=== PATIENT | male | born 1935 | race Caucasian/White ===

== ENCOUNTER → 2016-08-09 | Outpatient (CLI) | payer OTHER ==
[~2016-08-09] MED LIST: CIPR500T86 PO; CITA40TA5 PO; DONE5TAB7 PO; HYDR-3101 PO; LEVO50TA6 PO; MULT1TAB52 PO; OMEG1CAP23 PO; RAMI2.5C28 PO; SIMV10TA3 PO; URISPAS PO; [UNRECOGNIZED DRUG - CODE] PO
[2016-08-09 16:30] LABS: BASOPHIL % 0.3 % (0.0-0.2); EOSINOPHIL # 0.5 10^3/uL (0.0-0.2); EOSINOPHIL % 5.9 % (0.0-5.0); HEMATOCRIT 53.1 % (37.0-53.0); HEMOGLOBIN 17.7 g/dL (13.9-16.3); LYMPHOCYTES # 2.2 10^3/uL (1.0-4.8); MEAN CELL HGB 30.8 pg (26-34); MEAN CELL HGB CONCENTRATION 33.3 g/dL (33-37); MEAN CORP VOLUME 92.5 fL (78-100); MONOCYTES # 0.6 10^3/uL (0.3-0.8); MONOCYTES % 7.8 % (5.0-12.0); NEUTROPHIL # 4.3 10^3/uL (1.8-7.7); NEUTROPHILS % 56.9 % (41.0-85.0); RED CELL DISTRIBUTION WIDTH 13.7 % (11.5-14.5); WHITE BLOOD CELL 7.6 10^3/uL (4.5-11.0)
[2016-08-09 16:32] LABS: APPEARANCE,URINE CLEAR (CLEAR); BILIRUBIN,URINE NEGATIVE (NEGATIVE); UA COLOR STRAW (YELLOW); UROBILINOGEN,URINE NORMAL (NEGATIVE)
[2016-08-10 08:33] LABS: CALCIUM 8.8 mg/dL (8.4-10.5); CARBON DIOXIDE 31.2 mmol/L (20.0-32)
== END | disposition home or self-care (01) ==
LOC: LAB 15:51
PROVIDERS: ATTEND Internal Medicine
DX: Z13.220 Encounter for screening for lipoid disorders (principal); Z13.29 Encounter for screening for other suspected endocrine disorder; Z00.01 Encounter for general adult medical examination with abnormal findings; I10 Essential (primary) hypertension; E78.5 Hyperlipidemia, unspecified; R00.1 Bradycardia, unspecified; Z79.899 Other long term (current) drug therapy
CPT/HCPCS: 36415; 80053; 80061; 81002; 82043; 83036; 84425; 85025; 86803; 93005

== ENCOUNTER → 2016-08-24 | Outpatient (CLI) | payer OTHER | END | disposition home or self-care (01) | LOC: LAB 15:39 | PROVIDERS: ATTEND Internal Medicine | DX: Z13.29 Encounter for screening for other suspected endocrine disorder (principal); E03.9 Hypothyroidism, unspecified | CPT/HCPCS: 36415; 84439; 84443 ==

== ENCOUNTER → 2016-09-12 | Outpatient (CLI) | payer OTHER ==
[~2016-09-12] VITALS: Ht 170.2 cm; Wt 81.2 kg
[~2016-09-12] MED LIST changes: +LEXISCAN IV ONE
--- NOTE | 2016-09-12 15:42 | DIREP ---
PROCEDURE:CAROTID ULTRASOUND COMPARISON:None. INDICATIONS:R00.1 BRADARDIA, R53.853 FATIGUE, I25.10 CAD TECHNIQUE:Sonographic evaluation of carotid and vertebral arteries was performed together with grayscale, color-flow, and spectral analysis. FINDINGS: RIGHT CCA: PROX: 61.8 cm/s MID:50.8 cm/s DIST: 42.3 cm/s RIGHT ICA: PROX:34.1 cm/s MID:48.8 cm/s DIST:38.3 cm/s RIGHT ECA (prox):52.5 cm/s RIGHT ICA/CC:1.0 RIGHT VERTEBRAL:24.5 cm/s; Antegrade. IMAGES: There is intimal thickening. LEFT CCA: PROX:63.6 cm/s MID:57.3 cm/s DIST: 46.8 cm/s LEFT ICA: PROX:52.3 cm/s MID:62.4 cm/s DIST:46.0 cm/s LEFT ECA:60.6 cm/s LEFT ICA/CCA:1.3 LEFT VERTEBRAL:38.3 cm/s; Antegrade IMAGES:There is intimal thickening. CONCLUSION:No significant stenosis in the carotid vessels. Diameter Stenosis (%)ICA Peak Systolic Velocity (cm/s)ICA/CCA RatioNormal<125<2.0<50<125<[id number] to near occlusion>230>4J Ultrasound Med 2005; 24:5622-6310 ac Dictated by: ZURDO Physician on 09/12/2016 at 03:07 PM
--- NOTE | 2016-09-14 15:15 | STRESS ---
PROCEDURE: Stress test with nuclear imaging study. INDICATION: This is a 81-year-old gentleman with bradycardia, fatigue, coronary artery disease, hypertension and dyslipidemia. Symptoms were suggestive of coronary artery disease; therefore, imaging study was recommended to rule out any obstructive coronary artery lesion. The patient presented to the stress lab in the fasting condition. He signed proper consent. His baseline blood pressure 156/89, heart rate 52, sinus bradycardia without ischemic changes and right bundle branch block noted. The patient was injected with 0.4 mg of regadenoson, followed by at 1 minute post infusion, blood pressure was 147/79, heart rate of 84, no acute changes of ischemia noted, no arrhythmia and the patient reported no significant symptoms. Myocardial perfusion study was performed using technetium sestamibi on the same day with stress test protocol showing the following: Study quality was good. Motion artifact corrected and the prone position was available. LV cavity showed a degree of ____ ischemic dilatation. The calculated study was 1.14. This is an abnormal finding. Myocardial perfusion SPECT imaging showed a medium size apical perfusion defect that was present even at prone position correction indicating to ischemia . Gait function study showed apical hypokinesia, EF was 59%, volume 53 mL. IMPRESSION: 1. Nondiagnostic ses portion of Lexiscan. 2. No acute ischemia. 3. No arrhythmia. 4. No hemodynamic response. 5. Myocardial perfusion imaging study showed abnormality with the following: A. Transischemic dilatation. B. Medium size apical perfusion defect with some inferior wall extension. C. Gait function study showed apical hypokinesia and akinesia with preserved EF of 59%. D. This study qualifies for moderate risk for obstructive coronary artery disease. Clinical correlation is recommended. Lester Valencia MD,FACC JAEL/SHERRIE TD: 09/14/2016 10:37 [facility]ITALBraxton
== END | disposition home or self-care (01) ==
LOC: RAD 08:53
PROVIDERS: ATTEND Internal Medicine
DX: I25.10 Atherosclerotic heart disease of native coronary artery without angina pectoris (principal); I73.9 Peripheral vascular disease, unspecified; R00.1 Bradycardia, unspecified; R53.83 Other fatigue
CPT/HCPCS: 78452; 93017; 93307; 93880; A9500; J2785

== ENCOUNTER 2016-10-26 00:46 | Day surgery (SDC) | payer OTHER ==
[2016-10-23 17:09] LABS: BASOPHIL % 0.2 % (0.0-0.2); EOSINOPHIL # 0.3 10^3/uL (0.0-0.2); EOSINOPHIL % 4.2 % (0.0-5.0); HEMOGLOBIN 17.5 g/dL (13.9-16.3); LYMPHOCYTES % 24.3 % (24.0-44.0); MEAN CELL HGB CONCENTRATION 33.5 g/dL (33-37); MEAN CORP VOLUME 89.5 fL (78-100); MEAN PLATELET VOLUME 10.4 fL (7.8-11.0); MONOCYTES # 0.8 10^3/uL (0.3-0.8); MONOCYTES % 9.2 % (5.0-12.0); NEUTROPHILS % 61.9 % (41.0-85.0); RED CELL DISTRIBUTION WIDTH 13.4 % (11.5-14.5); WHITE BLOOD CELL 8.1 10^3/uL (4.5-11.0)
[2016-10-23 17:20] LABS: CALCIUM 9.5 mg/dL (8.4-10.5); CARBON DIOXIDE 29.2 mmol/L (20.0-32)
--- NOTE | 2016-10-23 19:30 | DIREP ---
PROCEDURE:CHEST 2 VIEWS COMPARISON:None. INDICATIONS:PRE OP HEART CATH, ABN STACY SCAN FINDINGS: LUNGS/PLEURA:Mild hyperinflation. No significant pulmonary parenchymal abnormalities. No effusions. VASCULATURE:Normal. Unremarkable pulmonary vasculature. CARDIAC:Normal. No cardiac silhouette abnormality or cardiomegaly. MEDIASTINUM:Mediastinal contours are within normal limits with calcifications of the aorta. 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 Degenerative changes of the spine. No acute abnormality. OTHER:Negative. CONCLUSION: 1. Mild hyperinflation may reflect senescent changes or underlying chronic lung disease such as COPD. No superimposed acute cardiopulmonary abnormality. Dictated by: Davey Grewal M.D. On 10/23/2016 at 07:27 PM
[2016-10-26] VITALS (11 sets, daily range): BP systolic 116–154; BP diastolic 66–82
[~2016-10-26] VITALS: Ht 170.2 cm; Wt 75.7 kg
[~2016-10-26 00:46] MED LIST changes: +AMLO5TAB2 PO; +ATOR40TA PO; +FLUT9.9S NS; +FOLI1TAB21 PO; +LEVO75TA6 PO; -LEXISCAN IV ONE; +METF500T4 PO; +RAMI10CA PO; +THIA50TA PO
[2016-10-26] MEDS ORDERED: BENADRYL PO ONE ×2 (06:00→07:06)
[2016-10-26] MEDS ORDERED: CALAN ONE (06:34)
[2016-10-26] MEDS ORDERED: HEPARIN ONE (06:34)
[2016-10-26] MEDS ORDERED: NITROGLYCERIN 25MG/D5W 250ML 250 ML IV ONE (06:35)
[2016-10-26] MEDS ORDERED: SUBLIMAZE ONE (06:35)
[2016-10-26] MEDS ORDERED: VERSED ONE (06:35)
[2016-10-26] MEDS ORDERED: XYLOCAINE ONE (06:35)
[2016-10-26] MEDS ORDERED: NS 1000ML 1,000 ML ONE (06:37)
[2016-10-26] MEDS ORDERED: ATROPINE SULFATE ONE (08:09)
--- NOTE | 2016-10-26 09:26 | CCRH ---
DATE OF SERVICE: 10/26/2016 PROCEDURES PERFORMED: 1. Left heart catheterization via right radial artery access. 2. Selective coronary angiography, left and right. 3. Left ventricular end-diastolic pressure measurement. 4. Left ventriculography. COMPLICATIONS: None. BLOOD LOSS: Minimal, less than 10 mL. INDICATIONS AND PREOPERATIVE DIAGNOSES: 1. Abnormal stress test dated 09/12/2016 with high risk findings. 2. Multiple risk factors for coronary artery disease including diabetes mellitus, hypertension, and hyperlipidemia and age. 3. Symptoms of bradycardia, fatigue, shortness of breath and occasional angina. HISTORY OF PRESENT ILLNESS: The patient is a 81-year-old gentleman with the above-mentioned risk factors was examined with stress test on 09/12/2016 that showed findings of transient ischemic dilatation and apical hypokinesia as well as a medium size perfusion defect in the inferior wall. Therefore, the patient was elected for coronary angiography and possible intervention. The patient presented to the [facility] in a fasting condition on 10/26/2016. He signed proper consent, risks and benefits were explained. All the questions were answered. Lab results were reviewed and allergies verified. DESCRIPTION OF PROCEDURE: Right wrist area was prepped and draped and sterilized, 1% lidocaine was used for local analgesia followed by advancing a 6-Trinidadian sheath in the right radial artery. 4000 units of heparin were given at access time for radial protection. A 6-Trinidadian [place] catheter was utilized to engage the right coronary arteries, followed by exchanging for a 6-Trinidadian JL4 guiding catheter to engage the left main coronary artery. A pigtail catheter was then advanced over the guidewire into the LV cavity across the aortic valve for LVEDP measurement and power injection LV gram in the EATON projection. Careful examination of coronary angiography showed a moderate disease in the mid circumflex artery inconsistent with stress test findings. Therefore, the case was concluded with removal of wires and catheters and application of TR band. The patient tolerated the procedure well, reports no symptoms. No arrhythmia was noted. He left the [facility] in stable condition and received education on the results of coronary angiography. HEMODYNAMICS: 1. Opening pressure of 126/59, mean of 77 mmHg. 2. LVEDP was around 8-10 mmHg. 3. LV gram showed an EF of around 60% without significant wall motion abnormality. 4. No gradient across the aortic valve was noted on pullback of the pigtail catheter. 5. Ascending aorta was normal in size without apparent pathology. The vessel was tortuous and mildly calcified. ANGIOGRAPHIC FINDINGS: 1. Right coronary artery is large, super dominant vessel, free of disease, bifurcates distally into a large super dominant RPDA and PLV branches. No obstructive lesion noted in the RCA territory. Multiple small acute marginal branches were seen. The conus branch and SA anastasia branch were normal in size, free of disease with close proximity to the ostium of the RCA. 2. Left main is a normal size vessel, free of disease and normal diameter. 3. LAD was showing minimal luminal irregularity around 20% in a medium size vessel. The first and second diagonal branches are large, tortuous vessels without significant disease. The LAD, apical segment is very minimal the apex is supplied mainly by the RCA. 4. The circumflex artery is a medium sized nondominant vessel. There is a 50% concentric lesion in the mid segment. The flow is TIMI3 in the circumflex artery territory. No obstructive lesions noted and multiple small obtuse marginal branches were seen without obstructive disease. IMPRESSION: 1. Normal left main. 2. Large super dominant RCA free of disease with the apical extension. 3. Minimal luminal irregularity in the medium size LAD 4. Moderate nonobstructive lesion in the medium sized nondominant circumflex artery. 5. Normal EF around 60% with normal LVEDP 6. The procedure was well tolerated. RECOMMENDATIONS: 1. TR band protocol. 2. Optimize medical management for secondary prevention of coronary artery disease. 3. Control of risk factors. 4. Therapeutic lifestyle modifications. 5. Same day discharge once the patient meets discharge criteria. Lester Valencia MD DR: SULY/ирина JOB# [id number]
== END 2016-10-26 10:50 | disposition home or self-care (01) | DRG 303 ==
LOC: SURG 00:46
PROVIDERS: ATTEND Internal Medicine
DX: I25.119 Atherosclerotic heart disease of native coronary artery with unspecified angina pectoris (principal); E78.5 Hyperlipidemia, unspecified; I42.9 Cardiomyopathy, unspecified; I10 Essential (primary) hypertension; E11.9 Type 2 diabetes mellitus without complications; I73.9 Peripheral vascular disease, unspecified; E66.3 Overweight; F32.9 Major depressive disorder, single episode, unspecified; Z88.0 Allergy status to penicillin; Z79.01 Long term (current) use of anticoagulants; Z79.899 Other long term (current) drug therapy; F17.210 Nicotine dependence, cigarettes, uncomplicated; Z95.1 Presence of aortocoronary bypass graft; Z68.26 Body mass index [BMI] 26.0-26.9, adult; Z90.49 Acquired absence of other specified parts of digestive tract; Z98.890 Other specified postprocedural states
CPT/HCPCS: 36415; 71020; 80048; 82948 ×2; 85025; 85610; 93458; 99152; C1769; C1887 ×2; C1894 ×2; J0461; J1644 ×2; J2250; J3010; J3490 ×2; J7030; Q0163; Q9967 ×2

== ENCOUNTER 2019-08-19 10:27 | Emergency (ER) | payer MEDICARE ==
[~2019-08-19] VITALS: Ht 170.2 cm; Wt 70.3 kg
[~2019-08-19 10:27] MED LIST changes: +AMLO5TAB10 PO; -AMLO5TAB2 PO; +CITA20TA9 PO; +ESCI10TA PO; +METF500T17 PO; -METF500T4 PO; +MIRT15TA3 PO; +MULT-419 PO; -MULT1TAB52 PO; +PHEN-566 PO; -RAMI10CA PO; +RAMI10CA36 PO; +RISP0.2518 PO; +SIMV10TA18 PO; -SIMV10TA3 PO; -THIA50TA PO; +THIA50TA4 PO; -[UNRECOGNIZED DRUG - CODE] PO
[2019-08-19 10:43] VITALS: BP 168/91
[2019-08-19 10:46] VITALS: BP 168/91
[2019-08-19 10:47] VITALS: BP 168/91
--- NOTE | 2019-08-19 10:48 | NUR ---
ARRIVAL PATIENT ARRIVED TO ED4 AMBULATORY, C/O OF LEFT SHOULDER PAIN FOR THE PAST COUPLE OF DAYS, PATIENT STATES THE PAIN IS WORSE WITH RANGE OF MOTION, DENIES TAKING ANY PAIN MEDICATIONS, CAME TODAY TO THE ED FOR EVAL.
--- NOTE | 2019-08-19 11:00 | PCM.EKG ---
[facility] Test Date: 2019-08-19 Test Time: 10:48:05 Pat Name: RAVINDER RIDDLE [facility]: [id number]: Gender: M Field Liability Generalist: MAJO : 1935 Requested By: ELSA OJEDA Order Number: [id number] Reading MD: Elsa OJEDA Measurements Intervals [place] Rate: 57 P: 70 PA: 190 QRS: 6 QRSD: 132 T: 43 QT: 464 QTc: 452 Interpretive Statements Sinus rhythm Right bundle branch block Compared to ECG 10/04/2018 16:29:52 Atrial premature complex(es) no longer present Electronically Signed On 08-22-2019 7:08:51 CDT by Elsa OJEDA Please click the below link to view image of tracing.
--- NOTE | 2019-08-19 11:00 | ER.PDOC ---
General Chief Complaint: Extremities Stated Complaint: PAIN IN BACK LEFT SHOULDER Time seen by MD: 10:59 Source: patient Exam Limitations: no limitations History of Present Illness Initial Comments Left shoulder, upper and mid back pain for past few days. No fall or injury. Where: home Severity: moderate Allergies: Coded Allergies: No Known Allergies (Unverified , 10/25/16) Home Meds Active Scripts Mirtazapine (REMERON) 15 Mg Tab.rapdis, 22.5 MG PO HS for 30 Days Prov:ALICIA MATTHEWS AIR [employer] 10/14/18 Citalopram Hydrobromide (CELEXA) 20 Mg Tablet, 30 MG PO DAILY for 30 Days, TABLET Prov:ALICIA MATTHEWS AIR MARSHAL 10/14/18 Risperidone (RISPERDAL) 0.25 Mg Tablet, 0.5 MG PO BID for 30 Days, TABLET Prov:ALICIA MATTHEWS AIR MARSHAL 10/14/18 Reported Medications Atorvastatin 40MG (LIPITOR 40MG) 40 Mg Tablet, 1 TAB PO HS, #90 TAB 1 Refill 10/01/18 Metformin Hcl (METFORMIN HCL) 500 Mg Tablet, 1 TAB PO DAILY24, #60 TAB 3 Refills 10/01/18 Levothyroxine Sodium (LEVOTHYROXINE SODIUM) 75 Mcg Tablet, 0.075 MCG PO DAILY24, TABLET 10/01/18 Ramipril 10MG (ALTACE 10MG) 10 Mg Capsule, 1 CAP PO DAILY, #30 CAP 5 Refills 10/25/16 Amlodipine Besylate (AMLODIPINE BESYLATE) 5 Mg Tablet, 1 TAB PO DAILY, #30 TAB 5 Refills 10/25/16 Past Medical History Medical History: no pertinent history Surgical History: appendectomy, knee, other Social History Alcohol Use: none Drug Use: none Review of Systems Constitutional: no symptoms reported Respiratory: no symptoms reported Cardiovascular: no symptoms reported Gastrointestinal: no symptoms reported Genitourinary: no symptoms reported Musculoskeletal: see HPI All Other Systems: Reviewed and Negative Physical Exam General Appearance: Alert, No Apparent Distress Shoulder: tenderness (left shoulder) Upper Extremities: uninjuried below shoulder Neuro: sensation nml, motor nml Vascular: no vascular compromise Head/ENT: nml inspection, pharynx nml Neck/Back: non-tender, nml inspection, painless ROM Respiratory: chest non-tender, breath sounds nml CVS: reg rate & rhythm, heart sounds nml Abdomen: non-tender, no organomegaly Comments Tenderness cervical and thoracic spines. Results/Orders Results/Orders Orders - ELSA OJEDA MD Cbc With Auto Diff (08/19/19 10:53) Comprehensive Metabolic Panel (08/19/19 10:53) Creatine Kinase (08/19/19 10:53) Creatine Kinase Mb (08/19/19 10:53) Troponin I (08/19/19 10:53) PT (08/19/19 10:53) Partial Thromboplastin Time. (08/19/19 10:53) Ekg-Routine (08/19/19 10:53) Xr Shoulder Lt 2v (08/19/19 10:53) Xr Cspine 2-3v (08/19/19 10:53) Xr Tspine 3v (08/19/19 10:53) Xr Chest 1v (08/19/19 10:53) Vital Signs Date Time Temp Pulse Resp B/P (MAP) Pulse Ox O2 Delivery O2 Flow Rate FiO2 08/19/19 10:47 98.0 60 18 168/91 (116) 92 Room Air 08/19/19 10:46 98.0 60 18 168/91 (116) 92 Room Air 08/19/19 10:43 98.0 60 18 92 08/19/19 10:43 98.0 60 18 Laboratory Tests Test 08/19/19 11:06 White Blood Count 5.3 10^3/uL (4.5-11.0) Red Blood Count 6.46 10^6/uL (4.50-5.90) H Hemoglobin 18.1 g/dL (13.9-16.3) H Hematocrit 56.9 % (37.0-53.0) H Mean Corpuscular Volume 88.1 fL (78-100) Mean Corpuscular Hemoglobin 28.0 pg (26-34) Mean Corpuscular Hemoglobin Concent 31.8 g/dL (33-36.5) L Red Cell Distribution Width 14.9 % (11.5-14.5) H Platelet Count 235 10^3/uL (150-400) Mean Platelet Volume 9.2 fL (7.8-11.0) Neutrophils (%) (Auto) 63.3 % (41.0-85.0) Lymphocytes (%) (Auto) 22.2 % (24.0-44.0) L Monocytes (%) (Auto) 10.7 % (5.0-12.0) Neutrophils # (Auto) 3.4 10^3/uL (1.8-7.7) Lymphocytes # (Auto) 1.18 10^3/uL1 (1.0-4.8) Monocytes # (Auto) 0.6 10^3/uL (0.3-0.8) Absolute Immature Granulocyte (auto 0 10^3 u/L (0-2) Absolute Eosinophils (auto) 0.2 10^3/uL (0.0-0.2) Immature Granulocytes % 0.00 % (0.00-0.50) Eosinophils % 3.2 % (0.0-5.0) Basophils % 0.6 % (0.0-0.2) H Basophils # 0.0 10^3/uL (0.0-0.1) Prothrombin Time 12.7 SEC (9.3-11.3) H Prothrombin Time INR (Non-Therap) 1.3 Activated Partial Thromboplast Time 25.0 SEC (24.67-30.72) Sodium Level 140 mmol/L (132-145) Potassium Level 3.3 mmol/L (3.6-5.2) L Chloride Level 102.0 mmol/L (96-109) Carbon Dioxide Level 30.8 mmol/L (20.0-32) Anion Gap 10.5 Blood Urea Nitrogen 6 mg/dL (7-18) L Creatinine 0.97 mg/dL (0.59-1.40) Estimated GFR () 89.7 (>/=60) Est GFR (CKD-EPI)(Non-Afr Cameroonian) 74.1 (>/=60) BUN/Creatinine Ratio 6.0 Glucose Level 111 mg/dL (70-110) H Calcium Level 8.5 mg/dL (8.4-10.5) Total Bilirubin 0.7 mg/dL (0.2-1.0) Aspartate Amino Transferase (AST) 21 U/L (0-35) Alanine Aminotransferase (ALT) 16 U/L (12-78) Alkaline Phosphatase 109 U/L (50-136) Total Creatine Kinase 67 U/L (39-308) Creatine Kinase MB 1.5 ng/mL (0.5-3.6) Troponin I < 0.02 ng/mL (0.00-0.05) Total Protein 7.0 g/dL (6.4-8.2) Albumin 3.3 g/dL (3.4-5.0) L Globulin 3.7 EKG/XRAY/CT/US XRAY: chest (No active disease) XRAY Comments: No acute bony abnormality of left shoulder, C and T spines Departure Time of Disposition: 11:49 Disposition: 01 HOME, SELF-CARE Impression: Primary Impression: Shoulder pain, left Additional Impression: Back pain Condition: Stable Referrals: MENDEZ GARCIA (PCP) PRIMARY CARE PROVIDER Additional Instructions: Tramadol Medrol dose pain F/U with your PCP in 3-5 days Return to ED if worsening pain or concerns. Duration or Time Spent with Pa: 45 min Problem Qualifiers Primary Impression: Shoulder pain, left Chronicity: acute Qualified Codes: M25.512 - Pain in left shoulder Additional Impression: Back pain Back pain location: back pain in unspecified location Chronicity: acute Back pain laterality: unspecified Qualified Codes: M54.9 - Dorsalgia, unspecified ELSA OJEDA MD Aug 19, 2019 11:00
[2019-08-19 11:13] LABS: BASOPHIL % 0.6 % (0.0-0.2); EOSINOPHIL # 0.2 10^3/uL (0.0-0.2); EOSINOPHIL % 3.2 % (0.0-5.0); LYMPHOCYTES # 1.18 10^3/uL1 (1.0-4.8); LYMPHOCYTES % 22.2 % (24.0-44.0); MONOCYTES # 0.6 10^3/uL (0.3-0.8); MONOCYTES % 10.7 % (5.0-12.0); NEUTROPHIL # 3.4 10^3/uL (1.8-7.7); NEUTROPHILS % 63.3 % (41.0-85.0); PLATELET COUNT 235 10^3/uL (150-400); RED CELL DISTRIBUTION WIDTH 14.9 % (11.5-14.5)
--- NOTE | 2019-08-19 11:13 | NUR ---
XRAY PATIENT TO RADIOLOGY WITH DELMI FROM RADIOLOGY.
--- NOTE | 2019-08-19 11:27 | NUR ---
XRAY PATIENT BACK FROM XRAY
--- NOTE | 2019-08-19 11:31 | DIREP ---
PROCEDURE:XR SPINE CERVICAL 2 OR 3 VIEWS COMPARISON:None. INDICATIONS:pain TECHNIQUE:AP, lateral, and dens views of the cervical spine are provided. FINDINGS: ALIGNMENT:Normal. VERTEBRAE:Normal height. Mild diffuse anterior osteophyte formation. Mild diffuse facet arthrosis. DISK SPACES:Normal. CERVICAL RIBS:None. OTHER:Normal. CONCLUSION:Degenerative changes without acute abnormality noted. Dictated by: Yuli Faith M.D. on 08/19/2019 at 11:29 AM
--- NOTE | 2019-08-19 11:31 | DIREP ---
PROCEDURE:XRAY SPINE THORACIC 3 VWS COMPARISON:None. INDICATIONS:pain TECHNIQUE:AP & lateral views of the thoracic spine are provided. FINDINGS: ALIGNMENT:Normal. VERTEBRAE:Normal height. Mild diffuse degenerative change. DISK SPACES:Normal. OTHER:Aortic atherosclerosis. CONCLUSION:No acute abnormality noted. Dictated by: Yuli Faith M.D. on 08/19/2019 at 11:30 AM
--- NOTE | 2019-08-19 11:35 | DIREP ---
PROCEDURE:CHEST 1 VIEW COMPARISON:[facility], CR, XRAY CHEST 2 VWS, 09/30/2018, 09:35 PM. INDICATIONS:upper back pain FINDINGS: LUNGS/PLEURA:Bibasilar atelectasis or scarring. No focal consolidation or pleural effusion. VASCULATURE:Normal. Unremarkable pulmonary vasculature. CARDIAC:Normal. No cardiac silhouette abnormality or cardiomegaly. MEDIASTINUM:Atherosclerotic aorta with no visible aneurysm. BONES:Chronic deformity of the midshaft right clavicle. OTHER:Negative. CONCLUSION: 1. Bibasilar atelectasis or scarring. No focal consolidation or pleural effusion. Dictated by: Jurgen Johnson MD on 08/19/2019 at 11:32 AM
[2019-08-19 11:38] LABS: ALANINE AMINOTRANSFERASE(ML) 16 U/L (12-78); ALKALINE PHOSPHATASE 109 U/L (50-136); ASPARTATE AMINO TRANSFERASE 21 U/L (0-35); CALCIUM 8.5 mg/dL (8.4-10.5); CARBON DIOXIDE 30.8 mmol/L (20.0-32); GLUCOSE 111 mg/dL (70-110)
--- NOTE | 2019-08-19 11:38 | DIREP ---
PROCEDURE:XRAY SHOULDER MIN 2 VWS-LT COMPARISON:None. INDICATIONS:pain FINDINGS: BONES:Chronic healed deformity of the left humeral neck. No acute deformities. JOINTS:Mild acromioclavicular and glenohumeral joint arthropathy. Well corticated os ossific densities above the glenohumeral joint that could signify intra-articular bodies. SOFT TISSUES:Normal. OTHER:Calcified aortic arch. CONCLUSION: 1. Mild acromioclavicular and glenohumeral joint arthropathy. 2. No acute deformities. Chronic deformity of the left humeral neck. 3. Calcific densities above the glenohumeral joint suggest the presence of intra-articular bodies. Dictated by: Jurgen Johnson MD on 08/19/2019 at 11:34 AM
[2019-08-19 11:48] VITALS: BP 163/87
== END 2019-08-19 11:55 | disposition home or self-care (01) ==
LOC: ER 10:27
DX: M25.512 Pain in left shoulder (principal); M54.9 Dorsalgia, unspecified; R79.1 Abnormal coagulation profile; Z79.899 Other long term (current) drug therapy; Z90.49 Acquired absence of other specified parts of digestive tract; Z79.84 Long term (current) use of oral hypoglycemic drugs
CPT/HCPCS: 36415; 71045; 72040; 72072; 80053; 82550; 82553; 84484; 85025; 85610; 85730; 93005; 99285; 73030-LT

== ENCOUNTER 2019-10-10 20:30 | Emergency (ER) | payer MEDICARE ==
[~2019-10-10] VITALS: Ht 172.7 cm; Wt 72.6 kg
[2019-10-10 20:51] VITALS: BP 148/80
--- NOTE | 2019-10-10 21:10 | NUR ---
DISCHARGE PATIENT C/A/O UPON DEPARTURE, PATIENT AMBULATED WITH OUT OF ER
--- NOTE | 2019-10-10 21:10 | NUR ---
AMA PATIENT STATES HE DOESN'T WANT ANY BLOODWORK OR AND TEST DONE, HE IS FEELING BETTER. AT BEDSIDE. RISK AND CONSEQUENCES EXPLAINED TO PATIENT. PATIENT SIGNED AMA AND IS TAKING PATIENT HOME.
--- NOTE | 2019-10-10 21:12 | ER.PDOC ---
General Chief Complaint: General Complaint Stated Complaint: TEMP MEMORY LOSS Time seen by MD: 20:43 Source: patient, family Exam Limitations: no limitations History of Present Illness Initial Comments Pt reportedly was confused, did not recognize his . Pt has had 2-3 beers this evening, was outside on covered porch a good portion of the afternoon. Pt now reports he feels fine, knows where he is, who he is and who his is, denies complaints. states he has had other times where he didn't recognize her for a little bit. No fever, no NANCE or neck pain. no vomiting/diarrhea Character of AMS: confused Usually: orientedx3 Prior symptoms/Treatment: Similar symptoms previous; No Recenly Seen Allergies: Coded Allergies: No Known Allergies (Unverified , 10/25/16) Home Meds Active Scripts Mirtazapine (REMERON) 15 Mg Tab.rapdis, 22.5 MG PO HS for 30 Days Prov:ALICIA MATTHEWS MILKING MACHINE TECHNICIAN 10/14/18 Citalopram Hydrobromide (CELEXA) 20 Mg Tablet, 30 MG PO DAILY for 30 Days, TABLET Prov:ALICIA MATTHEWS MILKING MACHINE TECHNICIAN 10/14/18 Risperidone (RISPERDAL) 0.25 Mg Tablet, 0.5 MG PO BID for 30 Days, TABLET Prov:ALICIA MATTHEWS MILKING MACHINE TECHNICIAN 10/14/18 Reported Medications Atorvastatin 40MG (LIPITOR 40MG) 40 Mg Tablet, 1 TAB PO HS, #90 TAB 1 Refill 10/01/18 Metformin Hcl (METFORMIN HCL) 500 Mg Tablet, 1 TAB PO DAILY24, #60 TAB 3 Refills 10/01/18 Levothyroxine Sodium (LEVOTHYROXINE SODIUM) 75 Mcg Tablet, 0.075 MCG PO DAILY24, TABLET 10/01/18 Ramipril 10MG (ALTACE 10MG) 10 Mg Capsule, 1 CAP PO DAILY, #30 CAP 5 Refills 10/25/16 Amlodipine Besylate (AMLODIPINE BESYLATE) 5 Mg Tablet, 1 TAB PO DAILY, #30 TAB 5 Refills 10/25/16 Past Medical History Medical History: thyroid disease Surgical History: appendectomy Family History Significant Family History: no pertinent family hx Social History Alcohol Use: heavy Drug Use: none Review of Systems Constitutional: no symptoms reported; denies chills, denies fever Eyes: no symptoms reported Ears, Nose, Mouth, Throat: no symptoms reported Respiratory: no symptoms reported Cardiovascular: no symptoms reported Gastrointestinal: no symptoms reported Genitourinary: no symptoms reported Musculoskeletal: no symptoms reported Skin: no symptoms reported Psychiatric/Neurological: see HPI Endocrine: no symptoms reported All Other Systems: Reviewed and Negative Physical Exam General Appearance: alert, no distress HEENT: no apparent trauma, EOM's intact, no nystagmus, PERRL Neuro/Psych: oriented x3, nml speech/cognition, nml mood/affect Cranial Nerves: nml as tested Peripheral Exam: motor nml, sensation nml, reflexes nml Neck: supple, non-tender, no carotid bruit Respiratory: no resp distress, breath sounds nml CVS: reg rate & rhythm, heart sounds nml Abdomen: non-tender, no organomegaly Skin: color nml, no rash, warm/dry Extremities: non-tender, nml ROM, pedal edema (trace bilateral) Results/Orders Results/Orders Orders - ELIZABETH LONG DO Ekg-Routine (10/10/19 20:57) Ct Head Wo Contrast (10/10/19 20:57) Vital Signs Date Time Temp Pulse Resp B/P (MAP) Pulse Ox O2 Delivery O2 Flow Rate FiO2 10/10/19 20:51 97.8 59 16 148/80 (102) 94 Room Air 10/10/19 20:51 97.8 59 16 94 10/10/19 20:51 97.8 59 16 Progress Progress Pt decided not to stay for workup, signed out AMA. Pt was alert, oriented x3 on evaluation, told nurse he was leaving but left before I could speak with him again. Departure Time of Disposition: 21:11 Disposition: 07 AGAINST MEDICAL ADVICE Impression: Primary Impression: Transient confusion Condition: Against Medical Advice Referrals: MENDEZ GARCIA (PCP) PRIMARY CARE PROVIDER Duration or Time Spent with Pa: 15 ELIZABETH LONG DO Oct 10, 2019 21:11
== END 2019-10-10 21:10 | disposition left against medical advice (07) ==
LOC: ER 20:30
DX: R41.0 Disorientation, unspecified (principal); Z79.899 Other long term (current) drug therapy
CPT/HCPCS: 93005; 99281